=== PATIENT | female | born 1995 | race Caucasian/White ===

== ENCOUNTER 2019-04-01 14:02 | Emergency (ER) | payer SELFPAY ==
[~2019-04-01] VITALS: Ht 165.1 cm; Wt 54.5 kg
[~2019-04-01 14:02] MED LIST: IBUP-1542 PO
[2019-04-01 14:07] VITALS: Ht 165.1 cm; Wt 54.5 kg
[2019-04-01] MEDS ORDERED: KETOROLAC 60 MG INJ IM STA (15:01)
[2019-04-01] MEDS ORDERED: HYDROCODONE/APAP (5/325) TAB PO ONE (15:30)
--- NOTE | 2019-04-01 15:43 | ERD ---
ER Documentation Chief Complaint Chief Complaint R881, left elbow pain, electrical gate closed on hand HPI 24-year-old female with prior medical history presents complaint of left ankle pain after an electrical gait closed on her elbow earlier today. Patient states that the pain is currently 8 out of 10. States that she is unable to fully extend her elbow. Patient denies any numbness, weakness, tingling. Denies any treatments. ROS All systems reviewed and are negative except as per history of present illness. Medications Home Meds Active Scripts Ibuprofen* (Motrin*) 600 Mg Tab, 600 MG PO Q6, #30 TAB Prov:ZAIN WILLSON 04/01/19 Allergies Allergies: Coded Allergies: No Known Allergy (Unverified , 04/01/19) PMhx/Soc Medical and Surgical Hx: pt denies Medical Hx, pt denies Surgical Hx Hx Alcohol Use: No Hx Substance Use: No Hx Tobacco Use: No Smoking Status: Never smoker FmHx Family History: No diabetes, No coronary disease, No other Physical Exam Vitals Vital Signs Date Temp Pulse Resp B/P (MAP) Pulse Ox O2 O2 Flow FiO2 Time Delivery Rate 04/01/19 98.5 67 18 112/74 100 14:07 (87) Physical Exam Const: No acute distress Head: Atraumatic Eyes: Normal Conjunctiva ENT: Normal External Ears, Nose and Mouth. Neck: Full range of motion. No meningismus. Resp: Clear to auscultation bilaterally Cardio: Regular rate and rhythm, no murmurs Abd: Soft, non tender, non distended. Normal bowel sounds Skin: No petechiae or rashes Back: No midline or flank tenderness Ext: No cyanosis, or edema Neur: Awake and alert Psych: Normal Mood and Affect Upper Extremity - bilateral: Skin: No laceration, or evidence of external trauma Compartments: Soft Motor: Full active range of motion shoulder//wrist/hand. Limited extension of left elbow. Sensation: Intact shoulder/pinky/middle finger/thumb web space Bones: Tenderness to palpation over patient's left elbow. Nontender humerus/forearm/wrist/hand Snuffbox: Nontender Joints: No effusion Pulses/Perfusion: 2+ radial, Capillary refill < 2 seconds Results 24 hrs Laboratory Tests Test 04/01/19 15:19 POC Beta HCG, Qualitative NEGATIVE Current Medications Medications Dose Sig/Messi Start Time Status Last (Trade) Ordered Route PRN Stop Time Admin Dose Reason Admin Ketorolac 60 mg ONCE STAT 04/01/19 DC 04/01/19 Tromethamine IM 15:01 15:23 (Toradol) 04/01/19 15:11 1 tab ONCE ONCE 04/01/19 DC 04/01/19 Acetaminophen PO 15:30 15:23 / 04/01/19 15:31 Hydrocodone Bitart ([place] (5/325)) Procedures/MDM MDM: X-rays were taken all results within normal limits. Patient most likely has contusion versus sprain of the elbow. Patient placed in Jarvis wrap and arm sling. Patient given Rx for ibuprofen. Patient was follow-up with Ortho if falguni n persist. I have low suspicion for neurovascular compromise, compartment syndrome, fracture, osteomyelitis, septic joint, DVT, or other emergent condition. At this time, patient is stable for discharge and outpatient management. I have instructed the patient to follow-up with his/her primary care physician in 1-2 days. I have discussed with the patient the possibility of needing to see a specialist for further workup and imaging studies if symptoms persist. I have instructed the patient to promptly return to the ER for any new or worsening symptoms including but not limited to increased pain, fever, nausea, vomiting, weakness or LOC. The patient and/or family expressed understanding of and agreement with this plan. All questions were answered. Home care instructions were provided. DISCLAIMER: Inadvertent spelling and grammatical errors are likely due to EHR/dictation software use and do not reflect on the overall quality of patient care. Also, please note that the electronic time recorded on this note does not necessarily reflect the actual time of the patient encounter. Departure Diagnosis: Primary Impression: Elbow injury Additional Impression: Elbow pain Condition: Stable ZAIN WILLSON Apr 01, 2019 15:43
[2019-04-01 17:55] VITALS: BP 107/72; PULSE 65; RESP 16
== END 2019-04-01 18:01 | disposition home or self-care (01) ==
LOC: FTE 14:02
DX: S59.902A Unspecified injury of left elbow, initial encounter (principal); X58.XXXA Exposure to other specified factors, initial encounter; Y92.9 Unspecified place or not applicable
CPT/HCPCS: 73060; 73080; 73090; 81025; 96372; 99284; J1885